=== PATIENT | female | born 1975 | race Caucasian/White ===

== ENCOUNTER → 2016-05-03 | Outpatient (CLI) | payer BC ==
[~2016-05-03] MED LIST: ACETAMINOPHEN PO; ALBUTEROL MININEB NEB; ALPRAZOLAM PO; AMBIEN PO; ASPIRIN PO; BACTRIM DS TABL1 TA1 PO; CELEXA10 M1 PO; CIPRO PO; COREG PO; COUMADIN PO; COUMADIN5 MG PO; DESYREL150 M1 PO; DIFLUCAN PO; DIGOX0.25 MG PO; FLAGYL PO; FLEXERIL10 MG PO; GABAPENTIN400 MG PO; KEFLEX PO; LANOXIN PO; LANTUS100 U/ML SUBQ; LOC PO; LOPRESSOR PO; LORTAB 5/500 TA1 TA2 PO; LORTAB 7.5-3251 EACH PO; LORTAB 7.5-5001 TAB PO; LOVENOX SUBQ; MEDROL4 MG/DOSE- PO; MUCOMYST200 MG/ML NEB; OCEAN45 ML; PERCOCET5/325 PO; PHENERGAN PO; PREDNISONE PO; PROTONIX PO; ROXANOL20 MG/ML IV; TOPROL XL PO; ULTRAM PO; VICODIN 5/500 T1 TAB PO; ZOFRAN IV; ZOLOFT PO
--- NOTE | ~2016-05-03 | CR63 ---
[facility] A Service of [facility] & [facility] RADIOLOGY TEXT RESULTS PATIENT: EYAD TORRES LOCATION: [facility] : 79 UNIT #: [id number] AGE: [address]: Renard Prakash MD SEX: F ORDER DR: [id number] [facility] [address] [place], [place] [address] [id number] O MR#: [id number] Acc #: [id number] NAME: EYAD TORRES : 1975 SEX: F STUDY DATE/TIME: 05/03/2016 10:53 UNIT: [facility] ROOM: STUDY DESCRIPTION: CR Chest 2 View Attending Physician: Renard Prakash M.D. Referring Physician: Renard Prakash M.D. Ordering Physician: Renard Prakash M.D. Primary Care Physician: Renard Prakash M.D. MEDICAL IMAGING REPORT This report is preliminary unless electronic signature is present EXAM Chest x-ray 05/03/2016 INDICATION Nonproductive cough with nasal drainage for 3 days. COMPARISON 04/29/2013. FINDINGS PA and lateral examination of the chest upright shows a good expansion of the parenchyma with a normal distribution of the pulmonary vascularity. There is no indication of congestion, effusion, infiltrate, tumor, or nodular density. The pleural reflections and diaphragmatic contours are normal. The cardiac silhouette and mediastinal anatomy is within normal limits. IMPRESSION Normal chest. STAT * RESULT Dictated by... Keyon Shields Jr., M.D. THIS IS AN ELECTRONICALLY VERIFIED REPORT Keyon Shields Jr., M.D. at 05/03/2016 1:37 PM JOZEF/sid TD: 05/03/2016 11:23 JOB #: [id number] [facility] A Service of [facility] RADIOLOGY TEXT RESULTS PATIENT: EYAD TORRES LOCATION: [facility] #: [id number] : 79 UNIT #: [id number] AGE: [address]: Renard Prakash MD SEX: F ORDER DR: MEDICAL IMAGING REPORT Page 1 of 1 COPY
== END | disposition home or self-care (01) ==
LOC: CRAD 10:45
DX: J00 Acute nasopharyngitis [common cold] (principal); R05 Cough; R09.89 Other specified symptoms and signs involving the circulatory and respiratory systems
CPT/HCPCS: 71020

== ENCOUNTER 2016-06-29 15:20 | Emergency (ER) | payer BC ==
--- NOTE | ~2016-06-29 | CT4 ---
[facility] A Service of [facility] RADIOLOGY TEXT RESULTS PATIENT: EYAD TORRES LOCATION: [facility] : 79 UNIT #: [id number] AGE: [address]: Diego Jacob MD SEX: F ORDER DR: [id number] [facility] [address] [place], [place] [address] [id number] MR#: [id number] Acc #: [id number] NAME: EYAD TORRES. : 1975 SEX: F STUDY DATE/TIME: 06/29/2016 19:50 UNIT: [facility] ROOM: STUDY DESCRIPTION: CT Abd and Pelv Wo Cont Ordering Physician: Attila Jacob M.D. Primary Care Physician: Renard Prakash M.D. MEDICAL IMAGING REPORT This report is preliminary unless electronic signature is present EXAM CT abdomen and pelvis 06/29/2016 HISTORY Flank pain. Abdomen pain. History of renal stones. Aches. Burning fullness. Pressure x 1-1.[address] abdomen and pelvis performed without administration of oral or intravenous contrast. This CT exam was performed with one or more of the following radiation dose reduction techniques: automatic exposure control, adjustment of mA and/or kV according to patient size, and iterative reconstruction. COMPARISON STUDIES 04/19/2015. FINDINGS Status post bilateral augmentation mammoplasty. Inferior heart and pericardium unremarkable. Band-like area of chronic scarring and mild bronchiectasis in the anterior-inferior right middle lobe is stable. There is no indication of acute basilar lung disease. Liver, gallbladder, spleen notable only for calcified splenic granuloma. Pancreas unremarkable. Adrenal glands unremarkable. Punctate non-obstructing calculus upper pole left kidney. 3 mm non-obstructing calculus lower pole right kidney. No hydronephrosis. Generalized cortical thinning suggested in the right kidney. Similar appearance on prior study. Focal areas of localized parenchymal thinning in the bilateral kidneys could reflect prior episodes of infection or prior vascular insults. No change. There is no hydronephrosis or hydroureter. No findings of ureteral calculi. No secondary signs of recent stone passage. [facility] A Service of [facility] & [facility] RADIOLOGY TEXT RESULTS PATIENT: EYAD TORRES LOCATION: [facility] : 79 UNIT #: [id number] AGE: [address]: Diego Jacob MD SEX: F ORDER DR: CT PELVIS: No inguinal adenopathy. Urinary bladder unremarkable. Uterus and left adnexa unremarkable. 2.4 cm right ovarian cyst, likely a dominant follicle for this menstrual cycle. There is no free fluid in pelvis. No pelvic or retroperitoneal adenopathy. Distal esophagus, stomach, small bowel notable for some retained food debris in non-dilated loops of small bowel. No small bowel inflammatory change. No dilatation. Finding likely physiologic in nature or reflective of delay in small bowel transit. The appendix is normal. Moderate stool burden in otherwise unremarkable colon. This may be physiologic in nature or reflect mild constipation. The unopacified vascular structures are unremarkable. Bony structures show no acute abnormality. IMPRESSION 1. Small non-obstructing intrarenal calculi bilaterally, largest measuring about 3 mm in lower pole of the right kidney. No acute appearing renal abnormalities. There is mild generalized cortical thinning of the right kidney, which is stable. There are bilateral focal areas of parenchymal thinning in the kidneys, likely reflecting prior episodes of infection or prior vascular insult. 2. 2.4 cm right ovarian cyst, likely dominant follicle for this menstrual cycle. 3. Gallbladder, pancreas, appendix normal. 4. There is some retained food debris in loops of small bowel. No small bowel dilatation or inflammatory change. The appearance is probably physiologic in nature or reflective of delay in small bowel transit. 5. Moderate stool burden in otherwise unremarkable colon. This could be physiologic in nature or reflect mild constipation. 6. Prior bilateral augmentation mammoplasty. 7. Stable scarring right middle lobe of lung. No acute pulmonary finding. 8. See remainder of incidental findings in body of report above. Dictated by... Edvin Mullins M.D. THIS IS AN ELECTRONICALLY VERIFIED REPORT Edvin Mullins M.D. at 06/30/2016 5:58 PM JOANNA/shana TD: 06/29/2016 22:04 JOB #: [id number] MEDICAL IMAGING REPORT Page 1 of 1 COPY
[~2016-06-29 15:20] MED LIST changes: -CELEXA10 M1 PO; -DESYREL150 M1 PO; -DIGOX0.25 MG PO; -FLAGYL PO; -GABAPENTIN400 MG PO; -LORTAB 7.5-3251 EACH PO
[2016-06-29 15:57] LABS: BASOPHIL# 0.1 X10e3 (0-0.3); BASOPHIL% 0.7 % (0-2.5); EOSINOPHIL# 0.1 X10e3 (0-0.7); EOSINOPHIL% 1.1 % (0.0-7.0); HEMATOCRIT 41.2 % (35.0-45.0); HEMOGLOBIN 13.3 gm/dL (12.0-16.0); LYMPHOCYTE# 1.9 X10e3 (1.0-3.5); MEAN CELL VOLUME 87.1 FL (83-96); MEAN CORPUSCULAR HGB CONC 32.2 g/dL (30-36); MEAN PLATELET VOLUME 9.3 FL (6.5-11.5); MONOCYTE# 0.7 X10e3 (0-1.0); MONOCYTE% 6.3 % (3.0-12.0); NEUTROPHIL# 8.5 X10e3 (1.5-7.1); NEUTROPHIL% 74.9 % (40-75); PLATELET COUNT 277 X10e3 (140-420); RED BLOOD COUNT 4.74 X10e (3.90-5.30); RED CELL DISTRIBUTION WIDTH 14.2 % (11.0-15.5); WHITE BLOOD COUNT 11.3 X10e3 (4.0-10.5)
[2016-06-29 16:00] LABS: DIFF IND NO
[2016-06-29 16:27] LABS: ALBUMIN SERUM 4.3 g/dL (3.5-5.0); BILIRUBIN, DIRECT 0.1 mg/dL (0.0-0.2); BILIRUBIN,INDIRECT 0.9 mg/dL (0.0-0.9); BUN/CREATININE RATIO 13.63; CALCIUM SERUM 9.4 mg/dL (8.4-10.2); CREATININE SERUM 1.1 mg/dL (0.6-1.4); GLOM FILT RATE Estimated 63.2 mL/min (>60); POTASSIUM 3.9 mmol/L (3.5-5.1); PROTEIN TOTAL SERUM 7.2 g/dL (6.0-8.3)
[2016-06-29 17:37] LABS: URINE SOURCE CLEAN CATCH
[2016-06-29 17:52] LABS: URINE APPEARANCE CLEAR; URINE BILIRUBIN NEG (NEG); URINE BLOOD NEG (NEG); URINE COLOR YELLOW; URINE GLUCOSE NEG (NEG); URINE KETONE NEG (NEG); URINE LEUKOCYTE ESTERASE 1+ (NEG); URINE NITRATE POS (NEG); URINE PH 5.5 (5-8); URINE PROTEIN NEG (NEG); URINE SPECIFIC GRAVITY 1.018 (1.003-1.035); URINE UROBILINOGEN 0.2 MG/DL (NEG)
[2016-06-29 17:56] LABS: CULTURE INDICATED? YES; URBCS1 AUWI 0-2 /[HPF] (0-2); URINE BACTERIA AUWI 4+ (NEGATIVE); URINE SQUAMOUS EPITHELIAL CELL OCC /[HPF]
== END 2016-06-29 21:40 | disposition home or self-care (01) ==
LOC: CED 15:20
DX: N30.00 Acute cystitis without hematuria (principal); K59.00 Constipation, unspecified; Z88.5 Allergy status to narcotic agent; Z88.0 Allergy status to penicillin; Z88.8 Allergy status to other drugs, medicaments and biological substances; Z88.1 Allergy status to other antibiotic agents
CPT/HCPCS: 36415; 74176; 80048; 80076; 81003; 83690; 84703; 85025; 87086; 87088; 87186; 96361; 96374; 99284; J1885

== ENCOUNTER 2016-10-06 16:01 | Observation (INO) | payer BC ==
[~2016-10-06] VITALS: Ht 160 cm; Wt 72.8 kg
--- NOTE | ~2016-10-06 | OR ---
Unit #: [id number] #: [id number] Patient: EYAD TORRES [id number] [address] [place], [place] [address] [id number] Eva MR#: [id number] NAME: EYAD TORRES. ROOM: [facility] Date of Procedure: 10/07/2016 Admission Date: 10/07/2016 Surgeon: Darron Riojas III, M.D. : 1975 Attending Physician: Susan Bhagat M.D. Primary Care Physician: Renard Prakash M.D. OPERATIVE REPORT PREOPERATIVE DIAGNOSIS Biliary dyskinesia. POSTOPERATIVE DIAGNOSIS Biliary dyskinesia. PROCEDURE PERFORMED Laparoscopic cholecystectomy. PRODUCTION MINER None. ANESTHESIA General endotracheal tube anesthesia. SPECIMENS Gallbladder to Pathology. COMPLICATIONS None apparent. INDICATIONS FOR PROCEDURE This is a 41-year-old lady, who has been having some biliary colic and had an abnormal HIDA scan. She is here today for laparoscopic cholecystectomy. DESCRIPTION OF PROCEDURE After consent was obtained, the patient was brought to the operating room and placed in the supine position. General anesthetic was administered and her abdomen was prepped and draped in standard surgical fashion. I made a 5-mm incision in the right upper quadrant. I used an Optiview to enter the peritoneal cavity without any difficulty. CO2 pneumoperitoneum was then established. Next, a second 5-mm port was placed in the infraumbilical region and an 11 mm port was placed in the midepigastric region and a third 5-mm port was placed in the right lateral subcostal region. I began by retracting the gallbladder superiorly and laterally. It was distended and did rupture after we grabbed it. I was able to retract it and dissect out the cystic duct and cystic artery. After these were carefully identified, I placed 2 clips proximally and 1 clip distally along both structures and then they were divided. The gallbladder was then taken off the liver bed using the hook cautery. I had good hemostasis. The gallbladder was extracted through the epigastric port Unit #: [id number] #: [id number] Patient: EYAD TORRES site without dilatation of the fascia. All needle, sponge, and instrument counts were correct x2. I did irrigate out the spilled bile at the end of the case. We then removed all the trocars and released pneumoperitoneum. All the incisions were injected with 0.25% plain Marcaine and I reapproximated the skin edges with interrupted 4-0 Vicryl subcuticular suture. Steri-Strips were then applied. The patient tolerated the procedure without any problems and returned to the recovery room in stable condition. Dictated by... Darron Riojas III, M.D. VCL/sumi TD: 10/09/2016 06:44 JOB #: [id number] OPERATIVE REPORT Page 1 of 1 X Darron Riojas III, MD X PROCEDURE OPERATIVE NOTE
--- NOTE | ~2016-10-06 | CT4 ---
[facility] A Service of [facility] & [facility] RADIOLOGY TEXT RESULTS PATIENT: EYAD TORRES LOCATION: [facility]- : [birth year] UNIT #: [id number] AGE: [address]: Susan Bhagat MD SEX: F ORDER DR: [id number] [facility] [address] [place], [place] [address] [id number] I MR#: [id number] Acc #: [id number] NAME: EYAD TORRES. : 1975 SEX: F STUDY DATE/TIME: 10/06/2016 19:22 UNIT: [facility]U ROOM: [facility] STUDY DESCRIPTION: CT Abd and Pelv Wo Cont Attending Physician: Alisha Kessler M.D. Ordering Physician: Kitty Maxwell M.D. Primary Care Physician: Renard Prakash M.D. MEDICAL IMAGING REPORT This report is preliminary unless electronic signature is present EXAM CT abdomen and pelvis without IV contrast. COMPARISON April 01, 2016, April 19, 2015, and March 18, 2011. INDICATION 41-year-old female with left lower quadrant abdominal pain radiating into the entire abdomen, nausea and emesis for 5 days. Mild leukocytosis. TECHNIQUE Axial CT imaging of the abdomen and pelvis was performed without IV contrast. Coronal and sagittal reformats were constructed. Lack of IV contrast limits evaluation of adenopathy, vasculature, and viscera. This CT exam was performed with one or more of the following radiation dose reduction techniques: automatic exposure control, adjustment of mA and/or kV according to patient size, and iterative reconstruction. FINDINGS Bilateral breast implants are incompletely imaged. No evidence of complication is seen on this exam. Mild multilevel degenerative facet disease of the lumbar spine. Small posterior disc protrusions L4-L5 and L5-S1. These are is likely clinically insignificant. No acute fractures or suspicious osseous lesions. No acute findings in the imaged lower chest. Unenhanced liver is unremarkable. There is fluid distension of the gallbladder without secondary findings of acute cholecystitis. Unenhanced pancreas and adrenal glands are unremarkable. There are calcified splenic granulomas. There is scarring in the inferior pole of the right kidney. No other focal renal lesions are seen on this noncontrasted exam. There is no hydronephrosis or hydroureter. No renal or ureteral calculi. [facility] A Service of [facility] & [facility] RADIOLOGY TEXT RESULTS PATIENT: EYAD TORRES LOCATION: [facility] 338-01 : [birth year] UNIT #: [id number] AGE: [address]: Susan Bhagat MD SEX: F ORDER DR: Urinary bladder is unremarkable. Uterus is unremarkable. In the left adnexal region, there is a 4.2 cm simple cyst. No appreciable free fluid to suggest rupture. No pneumoperitoneum. Normal caliber of the abdominal aorta. Moderate colonic stool burden. No evidence of adenopathy. No evidence of acute appendicitis. IMPRESSION 1. No acute abnormality abdomen, pelvis, or imaged lower chest. There is a large cystic structure in the left adnexal region measuring up to 4.2 cm. There is no evidence of rupture. 2. Scarring of the inferior pole of the right kidney. 3. Very small posterior disc protrusions at multiple levels of the lower lumbar spine, perhaps clinically insignificant. 4. Fluid distension of the gallbladder without secondary findings of acute cholecystitis. Dictated by... Mook Whitman M.D. THIS IS AN ELECTRONICALLY VERIFIED REPORT Mook Whitman M.D. at 10/12/2016 9:59 AM Araceli TD: 10/07/2016 04:22 JOB #: [id number] MEDICAL IMAGING REPORT Page 1 of 1 COPY
--- NOTE | ~2016-10-06 | US98 ---
[facility] A Service of [facility] RADIOLOGY TEXT RESULTS PATIENT: EYAD TORRES LOCATION: [facility] 338- : [birth year] UNIT #: [id number] AGE: [address]: Susan Bhagat MD SEX: F ORDER DR: [id number] [facility] [address] [place], [place] [address] [id number] I MR#: [id number] Acc #: [id number] NAME: EYAD TORRES. : 1975 SEX: F STUDY DATE/TIME: 10/06/2016 21:42 UNIT: [address] ROOM: [facility] STUDY DESCRIPTION: US Pelvic Non-OB Complete Attending Physician: Susan Bhagat M.D. Ordering Physician: Kitty Maxwell M.D. Primary Care Physician: Renard Prakash M.D. MEDICAL IMAGING REPORT This report is preliminary unless electronic signature is present EXAM Pelvic ultrasound, transabdominal and endovaginal. HISTORY Abdomen pain for 5 days. FINDINGS Ultrasound examination of the pelvis was performed with transabdominal and endovaginal technique. There is an approximately 3 cm fibroid in the anterior lower uterine body. No endometrial thickening or endometrial fluid. Blood flow is noted in both ovaries on color Doppler. There is a 4.7 cm simple cyst in the left ovary. No free fluid. IMPRESSION 1. Incidental 4.7 cm simple cyst in the left ovary. Blood flow is noted in both ovaries on color Doppler. 2. No free fluid in the pelvis. 3. Incidental 3 cm fibroid in the anterior lower uterus. Dictated by... Ayo Norris M.D. THIS IS AN ELECTRONICALLY VERIFIED REPORT Ayo Norris M.D. at 10/17/2016 2:24 PM ZARINA/mitchel TD: 10/07/2016 05:17 JOB #: [id number] [facility] A Service [facility] RADIOLOGY TEXT RESULTS PATIENT: EYAD TORRES LOCATION: [facility]-01 : [birth year] UNIT #: [id number] AGE: [address]: Susan Bhagat MD SEX: F ORDER DR: MEDICAL IMAGING REPORT Page 1 of 1 COPY
--- NOTE | ~2016-10-06 | CO ---
Unit #: [id number] #: [id number] Patient: EYAD KAISER [id number] [address] [address] [id number] I MR#: [id number] NAME: EYAD KAISER ROOM: 338 Age: 41 Sex: F Admission Date: 10/07/2016 : 1975 Attending Physician: Susan Bhagat M.D. Primary Care Physician: Renard Prakash M.D. Consultation Date: 10/07/2016 CONSULTATION REPORT HISTORY OF PRESENT ILLNESS Ms. Kaiser is a 40-year-old female, who presented to the emergency room with 24-hour history of epigastric and left upper quadrant pain that was increasing and with associated nausea and nonbloody vomiting. She denies any fever, chills, dysuria or productive cough. She has not had any hematemesis, hematochezia, or melena. In the ER, a CT scan was unremarkable except for a 4.2 cm left adnexal cyst. PAST MEDICAL HISTORY The patient had an episode of septic shock due to E coli urosepsis in 2008 due to the use of pressors that required amputation of the portions of 2 fingers and 2 toes. She has a history of supraventricular tachycardia. She is 6, para 2, with 2 miscarriages. She had 2 C sections. ALLERGIES She is allergic to ampicillin and morphine, both of which caused hives and she is allergic to Dilaudid, which causes anaphylaxis. She has not had a flu vaccine. FAMILY HISTORY Atherosclerotic coronary artery disease. SOCIAL HISTORY . She has 2 children. She denies use tobacco or recreational drugs. She is a social alcohol drinker. REVIEW OF SYSTEMS Otherwise unremarkable; in particular, no significant vaginal discharge. No melena. PHYSICAL EXAMINATION VITAL SIGNS: Temperature is 97.9, pulse 61 and regular, respirations 16, blood pressure 100/56. GENERAL: Awake, alert, oriented, cooperative, but states she is still having abdominal discomfort. HEENT: Unremarkable. No scleral icterus. CARDIAC: Regular rate and rhythm. LUNGS: Clear. ABDOMEN: She guards in the epigastrium and bilateral upper quadrants, but left more than right. There is no mass, no rebound tenderness. EXTREMITIES: No edema. NEUROLOGIC: Grossly intact. SKIN: No skin rashes or lesions. Unit #: [id number] #: [id number] Patient: EYAD KAISER DIAGNOSTIC STUDIES LABORATORY RESULTS: Comprehensive metabolic panel; lipase, lactic acid and procalcitonin are all normal. Urinalysis was negative for infection. White count 12,900 with 75% neutrophils and 16% lymphocytes, hemoglobin 12.2, platelets 177,000. IMAGING STUDIES: CT scan, 4.2 cm left adnexal cyst, otherwise unremarkable. ASSESSMENT AND PLAN A 40-year-old female with a 24-hour history of epigastric and left upper quadrant pain with nausea and nonbloody vomiting. She did have a 4.2 cm adnexal cyst on CT, but appears to be a simple cyst. Today, we will check a pelvic and vaginal ultrasound to further evaluate the left adnexal mass and get a CA-125 and CEA, although it appears to be most likely a simple ovarian cyst. I will recheck her CBC in the morning, but her other labs are unremarkable. H pylori serology will be obtained and a HIDA scan with stimulation. I have discussed this patient at length and we will follow her up. Dictated by... Danay Samano/sumi TD: 10/08/2016 02:03 JOB #: [id number] CONSULTATION REPORT Page 1 of 1 X Keyon Chapman MD CONSULTATION REPORT
--- NOTE | ~2016-10-06 | HP ---
Unit #: [id number] #: [id number] Patient: EYAD TORRES [id number] [address] [place], [place] [address] [id number] I MR#: [id number] NAME: EYAD TORRES. ROOM: 338 Age: 41 Sex: F Admission Date: 10/07/2016 : 1975 Attending Physician: Alisha Kessler M.D. Primary Care Physician: Renard Prakash M.D. HISTORY AND PHYSICAL CHIEF COMPLAINT Abdominal pain, left flank pain. HISTORY This pleasant, 41-year-old female with history of arrhythmia, who was quite ill in 2008 with E. coli, septic shock, and multisystem organ failure, is admitted for abdominal and left flank pain. Patient was well until about 24 hours prior to admission when she developed left upper quadrant, left flank pain. Notes anorexia, low-grade temperature. States the pain is worse with eating. She describes a burning discomfort in her upper abdomen and even into her chest region. Denies vaginal discharge with the above, diarrhea, melena, hematochezia. She was seen by her primary care physician and was noted to have a white blood count of 16 and, therefore, sent to the emergency department late last evening. In our ER, vital signs are stable. On examination, she is most tender in left upper quadrant, but also the epigastric region, left flank area, and somewhat in the left lower quadrant. Workup thus far is unremarkable except for an elevated white blood count. Patient is found to have a 4.7 cm simple cyst on pelvic ultrasound and on CT scan. Pelvic examination in the ER reveals some whitish vaginal discharge and cultures are pending. Urinalysis is negative. In the ER, she was treated with Lortab, Zofran, Toradol, and another dose of Zofran. PAST MEDICAL HISTORY 1. Admission 2008 with E. coli septic shock associated with multisystem organ failure. Patient was on the ventilator, had acute kidney injury, supraventricular tachycardia, TTP-HUF requiring plasmapheresis. Had associated thromboembolism. 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 2. Peripheral neuropathy. 3. Kidney stones. 4. C section. ALLERGIES Demerol, penicillin, Ativan, morphine, Dilaudid. HOME MEDICATIONS 1. Lopressor 50 mg daily. 2. Lanoxin 0.25 mg daily. 3. Celexa 10 mg daily. 4. Trazodone 150 mg q.h.s. 5. Neurontin 400 mg b.i.d. Unit #: [id number] #: [id number] Patient: EYAD TORRES FAMILY HISTORY CAD. SOCIAL HISTORY The patient lives with her daughter and boyfriend. Drinks occasional alcohol, is a lifelong nonsmoker. REVIEW OF SYSTEMS Notable for abdominal and left flank pain; kidney stones; C section; multisystem organ failure, 04/2008, as dictated above; and abovementioned surgeries. All other systems were reviewed and otherwise negative. PHYSICAL EXAMINATION GENERAL APPEARANCE: Pleasant, 41-year-old female currently in no acute distress. VITAL SIGNS: Temperature 98.5, pulse 58, respirations 14, blood pressure 108/55, O2 saturation is 100% on room air. HEENT: Eyes: PERRLA. Extraocular muscles are intact. Pharynx is benign. NECK: Supple without adenopathy or thyromegaly. CHEST: Clear. There is percussion tenderness over the left flank region. CARDIAC: Normal S1 and S2 without murmur. ABDOMEN: Bowels sounds are present. Patient is most tender in the left upper quadrant, epigastric, and somewhat in the left lower quadrant; but without rebound or guarding. No hepatosplenomegaly or masses. PELVIC: A pelvic examination was done in the ER and I am told that the patient had left adnexal tenderness on exam with a whitish discharge. EXTREMITIES: Without C, C, or E. Pedal pulses are present. NEUROLOGIC EXAM: Patient is awake, alert, oriented. Cranial nerves are intact. Equal strength throughout. DIAGNOSTIC STUDIES ADMISSION LABS: Hematocrit is 40.1, white blood count is 16.8, normal platelet count. SMA-12: Chloride is 98. Urinalysis is negative. IMAGING: CT scan: Adnexal abnormality and fluid distention of the gallbladder, but no stones. Pelvic ultrasound shows a simple 4.7 cm left ovarian cyst and fibroid uterus. ASSESSMENT 1. Left upper quadrant to left flank, left lower quadrant pain of uncertain etiology. Patient has an elevated white blood count, which could be infectious versus reactive. 2. Admission 04/2008 with E. coli septic shock secondary to obstructive pyelonephritis with multisystem organ failure, TTP-HUF, and thromboembolism. 3. Arrhythmia on digoxin and Lopressor. 4. 4 cm left ovarian cyst. PLANS 1. Blood cultures, check pancreatic enzymes, obtain digoxin level and lactic acid level along with procalcitonin level. 2. IV fluids. 3. A dose of Rocephin and Zithromax pending cervical cultures. 4. Proton pump inhibitor. 5. Will ask [facility] to see in consultation. Unit #: [id number] #: [id number] Patient: EYAD TORRES 6. Will give one GI cocktail in the ER, as well. Dictated by Alisha Kessler M.D. AML/pc TD: 10/07/2016 05:32 JOB #: [id number] HISTORY AND PHYSICAL Page 1 of 1 X Alisha Kessler MD HISTORY AND PHYSICAL
--- NOTE | ~2016-10-06 | NM22 ---
[facility] A Service of [facility] RADIOLOGY TEXT RESULTS PATIENT: EYAD TORRES LOCATION: [facility] 338-01 : [birth year] UNIT #: [id number] AGE: [address]: Susan Bhagat MD SEX: F ORDER DR: [id number] [facility]. [place], [place] [address] [id number] I MR#: [id number] Acc #: [id number] NAME: EYAD TORRES. : 1975 SEX: F STUDY DATE/TIME: 10/07/2016 10:05 UNIT: [address] ROOM: [facility] STUDY DESCRIPTION: NM Hepatobiliary W GB Pharm Attending Physician: Susan Bhagat M.D. Ordering Physician: Keyon Chapman M.D. Primary Care Physician: Renard Prakash M.D. MEDICAL IMAGING REPORT This report is preliminary unless electronic signature is present EXAM HIDA scan with Kinevac, 10/07/2016 HISTORY 41-year-old female with left lower quadrant pain radiating to the entire abdomen. Nausea, vomiting. Epigastric pain. Constipation. Gas/belching. Bloating. Symptoms have been present for "a while", worse over the past [address] abdomen and pelvis without contrast, 10/06/2016. FINDINGS Following the intravenous administration of 5.64 mCi technetium 99m Choletec, anterior planar images were obtained of the abdomen at 15-minute intervals for 1 hour. There is normal radiopharmaceutical uptake within the liver. The gallbladder is promptly visualized within the first 15 minutes of imaging. There is gradual clearance of radiopharmaceutical into the small bowel over the course of the examination. These findings indicate patency of both the cystic or common bile ducts. Subsequently, 1.4 mcg of Kinevac was administered intravenously. The calculated gallbladder ejection fraction is 26.7% (normal at this institution considered 30% or greater). IMPRESSION 1. Abnormal low gallbladder ejection fraction 26.7%. 2. No evidence of acute or chronic cholecystitis. Dictated by... My Moreno M.D. [facility] A Service of [facility] RADIOLOGY TEXT RESULTS PATIENT: EYAD TORRES LOCATION: [facility] 338-01 : [birth year] UNIT #: [id number] AGE: [address]: Susan Bhagat MD SEX: F ORDER DR: THIS IS AN ELECTRONICALLY VERIFIED REPORT My Moreno M.D. at 10/13/2016 8:36 AM Solitario TD: 10/07/2016 12:53 JOB #: [id number] MEDICAL IMAGING REPORT Page 1 of 1 COPY
--- NOTE | ~2016-10-06 | DS ---
Unit #: [id number] #: [id number] Patient: EYAD KAISER [id number] [address] [address] [id number] I MR#: [id number] NAME: EYAD KAISER. ROOM: 338 Age: 41 Sex: F Admission Date: 10/07/2016 : 1975 Discharge Date: 10/09/2016 Attending Physician: Susan Bhagat M.D. Primary Care Physician: Renard Prakash M.D. DISCHARGE SUMMARY PRINCIPAL DIAGNOSES 1. Biliary dyskinesia, status post laparoscopic cholecystectomy. 2. Left lower quadrant pain, question muscular in origin versus some associated neuropathic pain from lumbar spine. 3. Constipation. 4. Bacterial vaginosis. 5. Questionable gonorrhea and chlamydial infection with pending cultures. 6. Left ovarian cyst. 7. Reactive leukocytosis. 8. Mild protein malnutrition. 9. Depression with anxiety. 10. History of arrhythmia. PLACEMENT COORDINATOR Dr. Riojas, General Surgery. PROCEDURES 1. Laparoscopic cholecystectomy on October 07, 2016, with no complications. 2. CT scan of the abdomen and pelvis without contrast on October 06, 2016, with no acute abnormality. A large cystic structure in the left adnexal region measuring 4.2 cm without evidence of rupture. Small posterior disc protrusions at multiple levels of the lower lumbar spine. Fluid distention of the gallbladder without secondary findings of acute cholecystitis. 3. HIDA scan on October 07, 2016, with low ejection fraction of 27%. No acute or chronic cholecystitis. CLINICAL HISTORY AND HOSPITAL COURSE Ms. Kaiser is a nice 41-year-old female who presented to the emergency department with complaints of left lower quadrant, left flank, and right upper quadrant pain. This was associated with nausea, vomiting, and diarrhea. Please refer to H and P for further details. Patient underwent a pelvic exam in the emergency department and was found to have cervical tenderness upon examination. She also had whitish vaginal discharge. CT scan of the abdomen and pelvis was unremarkable. The patient continued to have a significant amount of pain and thus was admitted. In regards to patient's diffuse abdominal pain, General Surgery was consulted. A HIDA scan was done and revealed a low ejection fraction. Patient subsequently underwent laparoscopic cholecystectomy. Postoperatively, from this standpoint she has done well. No further nausea or vomiting. She is having some postoperative pain, but this Unit #: [id number] #: [id number] Patient: EYAD KAISER should resolve. In regards to patient's left lower quadrant pain, this waxed and waned during hospitalization. She was tender with movement and on examination, and I suspect this might be muscular. However, she does have some disk protrusion in the lumbar spine and has had increasing back pain, and perhaps she is having muscle spasm from nerve impingement. This can be followed up by Dr. Prakash as an outpatient. She was also constipated, and this may be a contributing factor. We tried to move bowels during hospitalization, but she was unable, and she would not like to stay in the hospital for further treatment. Upon presentation, patient was also found to have a significant leukocytosis with a white blood cell count of 16,000. Again, she was found to have cervical tenderness upon examination. Screening for bacterial vaginosis was positive, and she was placed on Flagyl. She was also placed on empiric antibiotics for gonorrhea and chlamydia. Swabs for this are still currently pending. I am going to treat her with IM Rocephin and a single oral dose of azithromycin for treatment here which should complete a course of treatment, and we can follow up cultures on an outpatient basis. DISCHARGE CONDITION Stable. DISCHARGE STATUS Discharge to home. DISCHARGE MEDICATIONS 1. Neurontin 400 mg b.i.d. 2. Celexa 10 mg daily. 3. Trazodone 150 mg at bedtime. 4. Digoxin 0.25 mg p.o. daily. 5. Metoprolol tartrate 50 mg daily. 6. Flagyl 500 mg b.i.d. for another 4 days. 7. Lortab 7.5/325 mg 1-2 tablets p.o. q.6 hours p.r.n. for pain. DISCHARGE INSTRUCTIONS 1. Patient is instructed to follow a regular diet. 2. She can increase her activity as tolerated. 3. No lifting greater than 10 pounds until seen in followup by [facility]. 4. She may shower. 5. She is not supposed to drive until off pain meds for 24 hours. 6. I have discussed with patient the need to discuss safe sex practices and treatment of her partner given questionable STI. FOLLOWUP 1. Patient will follow up with [facility] in two weeks. 2. Patient will follow up with Dr. Prakash in two weeks. If she does not have improvement in her left lower quadrant pain with bowel movements, perhaps further imaging of spine would be appropriate. 1. Dictated by... Susan Bhagat M.D. [facility]/fern Unit #: [id number] #: [id number] Patient: BRIANEYAD L TD: 10/11/2016 14:07 JOB #: [id number] DISCHARGE SUMMARY Page 1 of 1 X Susan Bhagat MD X DISCHARGE SUMMARY
[2016-10-06 19:25] LABS: URINE SOURCE CLEAN CATCH
[2016-10-06 19:34] LABS: BASOPHIL# 0.1 X10e3 (0-0.3); BASOPHIL% 0.6 % (0-2.5); EOSINOPHIL# 0.2 X10e3 (0-0.7); EOSINOPHIL% 1.1 % (0.0-7.0); HEMATOCRIT 40.1 % (35.0-45.0); HEMOGLOBIN 13.3 gm/dL (12.0-16.0); LYMPHOCYTE# 2.8 X10e3 (1.0-3.5); LYMPHOCYTE% 16.6 % (17.0-45.0); MEAN CELL VOLUME 84.8 FL (83-96); MEAN CORPUSCULAR HGB CONC 33.1 g/dL (30-36); NEUTROPHIL# 12.7 X10e3 (1.5-7.1); NEUTROPHIL% 75.7 % (40-75); PLATELET COUNT 312 X10e3 (140-420); RED BLOOD COUNT 4.73 X10e (3.90-5.30); RED CELL DISTRIBUTION WIDTH 13.5 % (11.0-15.5); WHITE BLOOD COUNT 16.8 X10e3 (4.0-10.5)
[2016-10-06 19:36] LABS: DIFF IND YES
[2016-10-06 19:42] LABS: URINE APPEARANCE CLEAR; URINE BILIRUBIN NEG (NEG); URINE BLOOD NEG (NEG); URINE COLOR YELLOW; URINE GLUCOSE NEG (NEG); URINE KETONE NEG (NEG); URINE LEUKOCYTE ESTERASE NEG (NEG); URINE NITRATE NEG (NEG); URINE PH 5.5 (5-8); URINE PROTEIN NEG (NEG); URINE SPECIFIC GRAVITY 1.019 (1.003-1.035); URINE UROBILINOGEN 0.2 MG/DL (NEG)
[2016-10-06 19:53] LABS: CULTURE INDICATED? NO
[2016-10-06 19:54] LABS: ALBUMIN SERUM 4.4 g/dL (3.5-5.0); BILIRUBIN, DIRECT 0.1 mg/dL (0.0-0.2); BILIRUBIN,INDIRECT 0.5 mg/dL (0.0-0.9); BILIRUBIN,TOTAL 0.6 mg/dL (0.2-2.0); CALCIUM SERUM 9.5 mg/dL (8.4-10.2); GLOM FILT RATE Estimated 70.9 mL/min (>60); POTASSIUM 4.1 mmol/L (3.5-5.1); PROTEIN TOTAL SERUM 7.4 g/dL (6.0-8.3)
[2016-10-06 19:57] LABS: PLATELET ESTIMATE NORMAL (NORMAL)
[2016-10-07] MEDS ORDERED: DIGOX0.25 MG PO (00:03)
[2016-10-07] MEDS ORDERED: GABAPENTIN400 MG PO (00:03)
[2016-10-07] MEDS ORDERED: LOPRESSOR PO (00:03)
[2016-10-07] MEDS ORDERED: CELEXA10 M1 PO (00:03)
[2016-10-07] MEDS ORDERED: DESYREL150 M1 PO (00:03)
[2016-10-07 01:56] LABS: DIGOXIN (LANOXIN) 1.3 ng/ml (1.0-2.0)
[2016-10-07 05:44] LABS: HEMATOCRIT 37.5 % (35.0-45.0); HEMOGLOBIN 12.2 gm/dL (12.0-16.0); MEAN CORPUSCULAR HEMOGLOBIN 27.7 PG (28-34); MEAN CORPUSCULAR HGB CONC 32.6 g/dL (30-36); MEAN PLATELET VOLUME 9.5 FL (6.5-11.5); RED BLOOD COUNT 4.42 X10e (3.90-5.30); RED CELL DISTRIBUTION WIDTH 13.3 % (11.0-15.5); WHITE BLOOD COUNT 12.9 X10e3 (4.0-10.5)
[2016-10-07 06:25] LABS: ALBUMIN SERUM 3.7 g/dL (3.5-5.0); ALKALINE PHOSPHATASE 52 U/L (32-92); ALT (SGPT) 13 U/L (10-40); AST (SGOT) 17 U/L (10-42); BILIRUBIN,TOTAL 0.2 mg/dL (0.2-2.0); BLOOD UREA NITROGEN 15 mg/dL (9-23); CALCIUM SERUM 8.9 mg/dL (8.4-10.2); CARBON DIOXIDE 29 mmol/L (22-31); CHLORIDE 100 mmol/L (100-111); GLOM FILT RATE Estimated 70.9 mL/min (>60); GLUCOSE FASTING 102 mg/dL (70-110); POTASSIUM 3.7 mmol/L (3.5-5.1); PROTEIN TOTAL SERUM 6.5 g/dL (6.0-8.3); SODIUM 137 mmol/L (135-145)
[2016-10-07 06:32] LABS: PROCALCITONIN <0.05 NG/ML
[2016-10-08 06:21] LABS: BASOPHIL% 0.1 % (0-2.5); HEMATOCRIT 35.7 % (35.0-45.0); HEMOGLOBIN 11.8 gm/dL (12.0-16.0); LYMPHOCYTE# 0.9 X10e3 (1.0-3.5); LYMPHOCYTE% 5.5 % (17.0-45.0); MEAN CELL VOLUME 85.5 FL (83-96); MEAN CORPUSCULAR HEMOGLOBIN 28.1 PG (28-34); MEAN CORPUSCULAR HGB CONC 32.9 g/dL (30-36); MEAN PLATELET VOLUME 9.5 FL (6.5-11.5); MONOCYTE# 0.9 X10e3 (0-1.0); MONOCYTE% 5.3 % (3.0-12.0); NEUTROPHIL# 15.4 X10e3 (1.5-7.1); NEUTROPHIL% 89.1 % (40-75); PLATELET COUNT 266 X10e3 (140-420); RED BLOOD COUNT 4.18 X10e (3.90-5.30); RED CELL DISTRIBUTION WIDTH 13.2 % (11.0-15.5); WHITE BLOOD COUNT 17.3 X10e3 (4.0-10.5)
[2016-10-08 06:25] LABS: DIFF IND YES
[2016-10-08 06:46] LABS: ALBUMIN SERUM 3.2 g/dL (3.5-5.0); BILIRUBIN,TOTAL 0.2 mg/dL (0.2-2.0); CALCIUM SERUM 8.6 mg/dL (8.4-10.2); GLOM FILT RATE Estimated 70.9 mL/min (>60); POTASSIUM 4.7 mmol/L (3.5-5.1)
[2016-10-08 07:59] LABS: PLATELET ESTIMATE NORMAL (NORMAL)
[2016-10-09 06:52] LABS: BASOPHIL# 0.1 X10e3 (0-0.3); BASOPHIL% 0.6 % (0-2.5); EOSINOPHIL# 0.4 X10e3 (0-0.7); EOSINOPHIL% 3.2 % (0.0-7.0); HEMOGLOBIN 11.6 gm/dL (12.0-16.0); LYMPHOCYTE# 2.9 X10e3 (1.0-3.5); MEAN CELL VOLUME 85.5 FL (83-96); MEAN CORPUSCULAR HEMOGLOBIN 28.4 PG (28-34); MEAN CORPUSCULAR HGB CONC 33.2 g/dL (30-36); MEAN PLATELET VOLUME 9.2 FL (6.5-11.5); NEUTROPHIL# 7.1 X10e3 (1.5-7.1); NEUTROPHIL% 62.2 % (40-75); PLATELET COUNT 246 X10e3 (140-420); RED BLOOD COUNT 4.09 X10e (3.90-5.30); RED CELL DISTRIBUTION WIDTH 13.4 % (11.0-15.5); WHITE BLOOD COUNT 11.5 X10e3 (4.0-10.5)
[2016-10-09 06:59] LABS: DIFF IND NO
[2016-10-09] MEDS ORDERED: FLAGYL PO (16:56)
[2016-10-09] MEDS ORDERED: LORTAB 7.5-3251 EACH PO ×2 (16:57→16:58)
[2016-10-10 13:52] LABS: CHLAMYDIA TRACH Not Detected (Not Detected); N GONOR Not Detected (Not Detected)
== END 2016-10-09 18:33 | disposition home or self-care (01) | DRG 446 ==
LOC: CED 16:01 → CEDOF 10-07 00:30 → CED 10-07 00:40 → CEDOF 10-07 00:40 → C3A PCU 10-07 01:51 → CEDOF 10-07 01:51 → C3A PCU 10-07 01:51
PROVIDERS: Emergency Medicine; Internal Medicine; Surgery
DX: K81.1 Chronic cholecystitis (principal); K59.00 Constipation, unspecified; N76.0 Acute vaginitis; N83.202 Unspecified ovarian cyst, left side; F41.8 Other specified anxiety disorders; I49.9 Cardiac arrhythmia, unspecified; J44.9 Chronic obstructive pulmonary disease, unspecified; Z87.442 Personal history of urinary calculi; Z88.0 Allergy status to penicillin; Z88.5 Allergy status to narcotic agent; Z88.8 Allergy status to other drugs, medicaments and biological substances; Z79.899 Other long term (current) drug therapy
CPT/HCPCS: 36415; 74176; 76830; 76856; 78227; 80048; 80053; 80076; 80162; 81003; 82150; 82308; 83605; 83690; 84703; 85025; 85027; 87040; 87491; 87591; 87808; 87905; 88304; 96361; 96365; 96366; 96367; 96374; 96375; 96376; 99285; A9537; G0378; J0696; J1885; J2250; J2405; J2710; J2765; J2805; J3010; J3490